=== PATIENT | female | born 1945 | race Caucasian/White ===

== ENCOUNTER 2019-06-30 16:37 | Inpatient (IN) ==
[2019-06-30] MEDS ORDERED: SODIUM CHLORIDE 0.9% 1000ML 1,000 ML IV ONE (16:45)
[2019-06-30] MEDS ORDERED: fentaNYL citrate 100 MCG/2 ML VIAL IV STA (16:54)
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
[2019-06-30] MEDS ORDERED: ONDANSETRON INJ 2 MG/ML 2 ML VIAL ONE ×2 (17:01→21:47)
[2019-06-30 17:15] LABS: Basophils # (auto) 0.01 K/uL (0-0.2); Basophils % (auto) 0.1 %; Eosinophils # (auto) 0.35 K/uL (0-0.5); Eosinophils % (auto) 2.7 %; Hematocrit (blood only) 40.6 % (37-47); Hemoglobin 13.5 g/dL (12.0-16.0); Immature Granulocytes # (auto) 0.13 K/uL (0.00-0.02); Lymphocytes # (auto) 1.94 K/uL (1.2-3.4); Mean Corpuscular Hemoglobin 31.3 pg (25-34); Mean Corpuscular Hgb Conc 33.3 g/dL (32-36); Mean Platelet Volume 9.9 fL (7.4-10.4); Monocytes # (auto) 0.63 K/uL (0.11-0.59); Monocytes % (auto) 4.9 %; Neutrophils # (auto) 9.87 K/uL (1.4-6.5); Neutrophils % (auto) 76.3 %; Platelet Count 262 K/uL (130-400); RDW Coefficient of Variation 12.5 % (11.5-14.5); RDW Standard Deviation 43.4 fL (36.4-46.3); Red Blood Count 4.32 M/uL (4.2-5.4); White Blood Count 12.93 K/uL (4.8-10.8)
[2019-06-30 17:15] LABS: iSTAT Creatinine 0.7 mg/dl (0.6-1.3); iSTAT Hemoglobin 12.9 g/dl (12.0-16.0); iSTAT Ionized Calcium 1.27 mmol/l (1.12-1.32); iSTAT Potassium 3.5 mEq/L (3.3-5.0)
[2019-06-30] MEDS ORDERED: IOVERSOL 100ml IV PRN (17:16)
[2019-06-30 17:25] LABS: Partial Thromboplastin Ratio 0.8; Partial Thromboplastin Time 22.1 Seconds (21.0-31.0); Prothrombin Time 10.2 Seconds (9.0-12.0)
[2019-06-30 17:31] LABS: BUN Creatinine Ratio 22.2 (10-20); Blood Urea Nitrogen 17 mg/dl (7-18); Calcium 9.3 mg/dl (8.5-10.1); Carbon Dioxide 27 mmol/L (21-32); Chloride 107 mmol/L (98-107); Est GFR (African American) 94.5; Est GFR (Non-African American) 81.5; Glucose 109 mg/dl (70-99); Lipase 389 U/L (73-393); Potassium 3.3 mmol/L (3.5-5.1); Sodium 138 mmol/L (136-145)
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
[2019-06-30 17:35] LABS: Troponin I < 0.015 ng/ml (0-0.045)
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
[2019-06-30] MEDS ORDERED: MoRPHine SULFATE 4 MG/ML 1 ML CARP\\VIAL IV STA (18:06)
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
[2019-06-30] MEDS: MoRPHine SULFATE 4 MG/ML 1 ML CARP\\VIAL IV PRN (20:48)
[2019-06-30] MEDS: OXYCODONE HCL IR 5 MG TAB (IMMEDIATE RELEASE) PO PRN (21:29)
[2019-06-30] MEDS: ACETAMINOPHEN 325 MG TAB PO SCH (21:29)
[2019-06-30] MEDS: SERTRALINE HCL 50 MG TABLET PO SCH (21:29)
[2019-06-30] MEDS ORDERED: ONDANSETRON INJ 2 MG/ML 2 ML VIAL IV PRN (21:45)
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
[2019-07-01] MEDS: ACETAMINOPHEN 325 MG TAB PO SCH ×5 (03:50→21:18)
[2019-07-01] MEDS: MoRPHine SULFATE 4 MG/ML 1 ML CARP\\VIAL IV PRN ×3 (03:50→11:29)
[2019-07-01] MEDS ORDERED: ROPIVACAINE 0.5% HCL/PF 150 MG, BUPIVACAINE 0.5% MPF 30 ML, EPINEPHrine 30MG/30ML (OR U... INSTIL SCH (06:00)
[2019-07-01 06:43] LABS: Hematocrit (blood only) 31.5 % (37-47); Hemoglobin 10.2 g/dL (12.0-16.0); Mean Corpuscular Hemoglobin 31.1 pg (25-34); Mean Corpuscular Hgb Conc 32.4 g/dL (32-36); Mean Platelet Volume 9.4 fL (7.4-10.4); Platelet Count 206 K/uL (130-400); RDW Coefficient of Variation 12.8 % (11.5-14.5); RDW Standard Deviation 44.8 fL (36.4-46.3); Red Blood Count 3.28 M/uL (4.2-5.4); White Blood Count 8.71 K/uL (4.8-10.8)
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
[2019-07-01 07:20] LABS: BUN Creatinine Ratio 20.8 (10-20); Calcium 8.5 mg/dl (8.5-10.1); Creatinine Clr Calc Pharmacy 67.1 ml/min; Est GFR (African American) 97.7; Est GFR (Non-African American) 84.3; Potassium 3.8 mmol/L (3.5-5.1)
--- NOTE | 2019-07-01 08:45 | XRay Report ---
XR ribs RT min 2V CLINICAL HISTORY: rib fracture. Right rib pain. COMPARISON STUDY: Right humerus 06/30/2019. FINDINGS: Redemonstration of the displaced and comminuted fracture within the right humeral head/neck . Mildly displaced right anterior sixth through 10th rib fractures. No pneumothorax. IMPRESSION: 1. Mildly displaced right anterior sixth through 10th rib fractures. No pneumothorax. 2. Displaced and comminuted fracture within the right humeral head/neck is again noted. ACT 112: Negative or not required by law. Electronically signed by: Cuong Cuevas M.D. 07/01/2019 8:44 AM
[2019-07-01] MEDS ORDERED: LORazepam 0.5 MG TAB PO PRN (09:35)
--- NOTE | 2019-07-01 09:42 | Electrocardiogram Report ---
Test Reason : Blood Pressure : / mmHG Vent. Rate : 084 BPM Atrial Rate : 084 BPM P-R Int : 118 ms QRS Dur : 096 ms QT Int : 392 ms P-R-T Axes : 041 058 061 degrees QTc Int : 463 ms Poor data quality, interpretation may be adversely affected Normal sinus rhythm Normal ECG No previous ECGs available Confirmed by Solomon Portillo ([id number]) on 07/01/2019 9:42:16 AM Referred By: REFERRED SELF Confirmed By:Solomon Portillo
[2019-07-01] MEDS ORDERED: SODIUM CHLORIDE 0.9% 1000ML 1,000 ML IV SCH (09:45)
[2019-07-01] MEDS: KETOROLAC TROMETHAMINE 15 MG/ML VIAL IV PRN (09:52)
[2019-07-01] MEDS ORDERED: BUPIVACAINE 0.5 % 5 MG/1 ML PF 10ML VIAL ONE (13:03)
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
[2019-07-01] MEDS ORDERED: HYDROmorphone INJ 1 MG/ML SYRINGE IV PRN (13:29)
[2019-07-01] MEDS ORDERED: KETOROLAC 30 MG/ML VIAL IV PRN (13:29)
[2019-07-01] MEDS ORDERED: ATROPINE SULFATE 0.1 MG/ML 10ML SYR IV PRN (13:29)
[2019-07-01] MEDS ORDERED: ONDANSETRON INJ 2 MG/ML 2 ML VIAL IV PRN ×2 (13:29→17:43)
[2019-07-01] MEDS ORDERED: PROPOFOL IV EMULSION 10 MG/ML 20 ML VIAL IV ONE (13:30)
[2019-07-01] MEDS ORDERED: fentaNYL citrate 100 MCG/2 ML VIAL ONE (13:30)
[2019-07-01] MEDS ORDERED: DEXAMETHASONE SOD INJ 4 MG/ML VIAL ONE (13:30)
[2019-07-01] MEDS ORDERED: LIDOCAINE HCL 2% 2 ML VIAL/AMP(20MG/ML) INFIL ONE (13:30)
[2019-07-01] MEDS ORDERED: NEOSTIGMINE METHYLSULFATE 5 MG/5 ML SYR ONE ×2 (13:30→14:42)
[2019-07-01] MEDS ORDERED: GLYCOPYRROLATE 0.2 MG/ML VIAL ONE ×2 (13:30→14:42)
[2019-07-01] MEDS ORDERED: ONDANSETRON INJ 2 MG/ML 2 ML VIAL ONE (13:30)
[2019-07-01] MEDS ORDERED: MIDAZOLAM HCL 1 MG/ML 2ML VIAL ONE (13:30)
[2019-07-01] MEDS ORDERED: CEFAZOLIN 2,000 MG/15 ML IV PUSH IV ONE (13:53)
[2019-07-01] MEDS ORDERED: CEFAZOLIN 2000MG 2,000 MG/15 ML SYR IV ONE (13:53)
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
[2019-07-01] MEDS ORDERED: ROCURONIUM BROMIDE 10 MG/ML 5 ML VIAL ONE (14:42)
[2019-07-01] MEDS ORDERED: ePHEDrine sulfate 50 MG/ML SYR ONE (15:54)
[2019-07-01] MEDS ORDERED: PHENYLEPHRINE 100MCG/ML 5ML SYR ONE (15:54)
[2019-07-01] MEDS ORDERED: POVIDONE-IODINE OP SOLN 30 ML BTL TOP SCH (16:00)
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
--- NOTE | 2019-07-01 16:48 | Anesthesiology Progress Note ---
Date of Service July 01, 2019 Anesthesia Post Procedure Vital Signs Vital Signs: Temp Pulse Pulse Pulse Resp BP Pulse Ox 07/01/19 16:30 97 H 24 127/64 99 07/01/19 16:20 84 19 129/64 98 07/01/19 16:13 36.9 C 98 H 13 140/67 99 07/01/19 13:11 36.8 C 75 20 121/74 93 07/01/19 11:49 36.5 C 65 18 111/66 96 07/01/19 08:06 36.5 C 60 18 96/54 L 98 07/01/19 08:00 86 07/01/19 04:00 36.7 C 69 18 99/57 L 97 07/01/19 00:00 86 06/30/19 23:52 36.7 C 68 17 96/60 L 97 06/30/19 20:35 36.5 C 67 18 118/68 99 06/30/19 20:25 36.5 C 66 20 118/68 98 06/30/19 19:38 66 13 102/61 99 06/30/19 19:00 68 18 105/64 100 06/30/19 17:32 89 18 126/74 92 Pain Intensity Right Shoulder: Pain Intensity: 0 Transfer of Care Handoff Completed per policy Notes Mental Status: alert / awake / arousable and participated in evaluation Patient Amnestic to Procedure: Yes Nausea / Vomiting: adequately controlled Pain: adequately controlled Airway Patency, RR, SpO2: stable & adequate BP & HR: stable & adequate Hydration State: stable & adequate Anesthetic Complications: no major complications apparent and Pt Satisfied with anesthetic care
--- NOTE | 2019-07-01 16:49 | XRay Report ---
XR shoulder RT min 2V routine CLINICAL HISTORY: Post shoulder surgery COMPARISON: 06/30/2019 DISCUSSION: Interval placement of a total right shoulder arthroplasty. A residual fracture component of the humeral neck persists. Expected soft tissue postoperative change IMPRESSION: Anatomic alignment posttotal right shoulder arthroplasty. ACT 112: Negative or not required by law. The above report was generated using voice recognition software. It may contain grammatical, syntax or spelling errors. Electronically signed by: Mark Clifford M.D. 07/01/2019 4:48 PM
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
[2019-07-01] MEDS ORDERED: NALOXONE HCL 0.4 MG/1 ML VIAL/CARP IV PRN (17:43)
[2019-07-01] MEDS ORDERED: POLYETHYLENE (MIRALAX) 17 GM PACK PO PRN (17:49)
[2019-07-01] MEDS: DOCUSATE SODIUM 100 MG CAP PO SCH (21:17)
[2019-07-01] MEDS: SERTRALINE HCL 50 MG TABLET PO SCH (21:19)
[2019-07-01] MEDS: CEFAZOLIN 2000MG 2,000 MG/15 ML SYR IV SCH (21:19)
[2019-07-02] MEDS: ACETAMINOPHEN 325 MG TAB PO SCH ×4 (02:55→20:19)
[2019-07-02] MEDS: CEFAZOLIN 2000MG 2,000 MG/15 ML SYR IV SCH (05:25)
[2019-07-02 05:35] LABS: Hematocrit (blood only) 26.9 % (37-47); Hemoglobin 8.9 g/dL (12.0-16.0); Immature Granulocytes # (auto) 0.02 K/uL (0.00-0.02); Immature Granulocytes % (auto) 0.2 %; Lymphocytes % (auto) 6.2 %; Mean Corpuscular Hemoglobin 31.1 pg (25-34); Mean Corpuscular Hgb Conc 33.1 g/dL (32-36); Mean Corpuscular Volume 94.1 fL (80-100); Mean Platelet Volume 9.7 fL (7.4-10.4); Monocytes # (auto) 0.67 K/uL (0.11-0.59); Monocytes % (auto) 6.9 %; Neutrophils # (auto) 8.46 K/uL (1.4-6.5); Neutrophils % (auto) 86.7 %; Platelet Count 184 K/uL (130-400); RDW Coefficient of Variation 12.8 % (11.5-14.5); RDW Standard Deviation 44.1 fL (36.4-46.3); Red Blood Count 2.86 M/uL (4.2-5.4); White Blood Count 9.75 K/uL (4.8-10.8)
[2019-07-02 06:39] LABS: BUN Creatinine Ratio 17.9 (10-20); Calcium 8.3 mg/dl (8.5-10.1); Creatinine Clr Calc Pharmacy 74.3 ml/min; Est GFR (African American) 103.5; Est GFR (Non-African American) 89.3; Potassium 4.2 mmol/L (3.5-5.1)
--- NOTE | 2019-07-02 07:01 | Orthopedic Progress Note ---
Date of Service July 02, 2019 Assessment & Plan (1) History of reverse total replacement of right shoulder joint: Overall she is doing very well. She is not having too much pain in the right shoulder. She will be seen by physical therapy this morning for hand, wrist, elbow, and pendulum exercises. She can be weightbearing as tolerated. I do not think any treatment for the medial malleolus fracture is warranted right now. She is not having much pain. She can do the range of motion exercises she is learned from physical therapy on her own for the next 2 weeks. I will see her in the office in 2 weeks to remove the mary and start her with formal physical therapy. She is orthopedically stable for discharge when medically ready. Present on Admission?: No Subjective Ellie was seen and examined at bedside this morning. Overall she is doing very well. She is not having too much pain in the right shoulder. She is already been up and ambulating in the hallways. She is not having much pain in her ankle. She is happy with her progress. She has no complaints. Physical Exam Musculoskeletal: Physical examination of the right shoulder, the dressing is clean and dry. She is wearing her sling as instructed. She can flex her fingers but she cannot extend them yet. She still some numbness in her hand. The block is still working. Results & Data Vital Signs (Past 12 Hours) Vital Signs Temp Pulse Resp BP Pulse Ox 07/02/19 03:05 36.6 C 71 18 100/60 94 07/01/19 23:40 36.7 C 73 16 92/54 L 93 07/01/19 21:40 101/61 98 07/01/19 20:25 36.6 C 76 17 94/53 L 96 07/01/19 19:05 36.6 C 69 17 105/64 97 Laboratory Results H & H 06/30/19 07/01/19 07/02/19 Range/Units 16:54 06:23 04:51 Hgb 13.5 10.2 L D 8.9 L (12.0-16.0) g/dL Hct 40.6 31.5 L 26.9 L (37-47) % Coagulation 06/30/19 Range/Units 16:54 INR 1.0 (0.9-1.1) Diagnostic Findings Postoperative x-rays of the right shoulder show the prosthesis to be in anatomic alignment without any evidence of fracture, dislocation, or loosening. The tuberosities appear to be well reduced. PG Care Time/CCT Total # of Minutes Spent Total Time Spent with Patient: Total time spent is greater than 50% in coordination of care (as documented) at patient's floor/unit and/or counseling patient:
--- NOTE | 2019-07-02 07:15 | XRay Report ---
XR chest 1V portable CLINICAL HISTORY: rib fractures COMPARISON STUDY: 07/01/2019 FINDINGS: The cardiac and mediastinal contours remain stable. No pneumothorax is visualized. There is no failure. There is no focal pulmonary consolidation. The patient is status post a reversed total r ight shoulder arthroplasty. There is gas present within the soft tissues consistent with recent surge ry.[The recently described right-sided rib fractures are difficult to visualize on this portable ches t x-ray. IMPRESSION: 1. No active disease in the chest 2. No evidence of pneumothorax 3. Postsurgical changes involving the right shoulder ACT 112: Negative or not required by law. Electronically signed by: Wolf Gonzalez M.D. 07/02/2019 7:14 AM
--- NOTE | 2019-07-02 07:15 | Surgery Progress Note ---
Date of Service July 02, 2019 Assessment & Plan (1) Ground glass opacity present on imaging of lung: I discussed the CT findings of the right upper lobe abnormality with the patient and her family. This may well been due to trauma. It does not look like a contusion however it does not not look like a solid mass either. We can repeat her CT scan in 2 months and I will see her back in the office. She looks much improved today. Present on Admission?: Yes Subjective Patient is much improved from yesterday. She tolerated her reverse right shoulder arthroplasty quite nicely. Physical Exam Physical Exam: She is moving air well. She is quite black and blue anteriorly on her sternum and chest. Results & Data Vital Signs (Past 12 Hours) Vital Signs Temp Pulse Resp BP Pulse Ox 07/02/19 03:05 36.6 C 71 18 100/60 94 07/01/19 23:40 36.7 C 73 16 92/54 L 93 07/01/19 21:40 101/61 98 07/01/19 20:25 36.6 C 76 17 94/53 L 96 PG Care Time/CCT Total # of Minutes Spent Total Time Spent with Patient: Total time spent is greater than 50% in coordination of care (as documented) at patient's floor/unit and/or counseling patient:
[2019-07-02] MEDS: DOCUSATE SODIUM 100 MG CAP PO SCH ×2 (09:20→20:19)
[2019-07-02] MEDS: KETOROLAC TROMETHAMINE 15 MG/ML VIAL IV PRN ×2 (12:06→20:19)
[2019-07-02] MEDS ORDERED: TAMSULOSIN HCL 0.4 MG CAP PO ONE (15:00)
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
[2019-07-02] MEDS: OXYCODONE HCL IR 5 MG TAB (IMMEDIATE RELEASE) PO PRN (16:44)
[2019-07-02] MEDS: SERTRALINE HCL 50 MG TABLET PO SCH (20:20)
[2019-07-02] MEDS ORDERED: OXYCODONE HCL IR 5 MG TAB (IMMEDIATE RELEASE) PO PRN (21:51)
[2019-07-02] MEDS ORDERED: KETOROLAC TROMETHAMINE 15 MG/ML VIAL IV ONE (23:19)
[2019-07-03] MEDS: ACETAMINOPHEN 325 MG TAB PO SCH ×3 (01:53→14:13)
[2019-07-03] MEDS: MoRPHine SULFATE 4 MG/ML 1 ML CARP\\VIAL IV PRN (07:20)
[2019-07-03 07:25] LABS: Basophils # (auto) 0.01 K/uL (0-0.2); Basophils % (auto) 0.1 %; Eosinophils # (auto) 0.22 K/uL (0-0.5); Eosinophils % (auto) 3.2 %; Hematocrit (blood only) 24.5 % (37-47); Immature Granulocytes # (auto) 0.03 K/uL (0.00-0.02); Immature Granulocytes % (auto) 0.4 %; Lymphocytes # (auto) 1.24 K/uL (1.2-3.4); Lymphocytes % (auto) 17.9 %; Mean Corpuscular Hemoglobin 31.1 pg (25-34); Mean Corpuscular Hgb Conc 32.7 g/dL (32-36); Mean Corpuscular Volume 95.3 fL (80-100); Mean Platelet Volume 9.4 fL (7.4-10.4); Monocytes # (auto) 0.66 K/uL (0.11-0.59); Monocytes % (auto) 9.5 %; Neutrophils # (auto) 4.78 K/uL (1.4-6.5); Neutrophils % (auto) 68.9 %; Platelet Count 161 K/uL (130-400); RDW Coefficient of Variation 13.1 % (11.5-14.5); RDW Standard Deviation 45.2 fL (36.4-46.3); Red Blood Count 2.57 M/uL (4.2-5.4); White Blood Count 6.94 K/uL (4.8-10.8)
[2019-07-03] MEDS: DOCUSATE SODIUM 100 MG CAP PO SCH (07:54)
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
[2019-07-03] MEDS ORDERED: TAMSULOSIN HCL 0.4 MG CAP PO SCH (12:00)
[2019-07-03] MEDS ORDERED: LORazepam 0.5 MG TAB PO ONE (12:30)
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
== END 2019-07-03 15:10 | disposition home or self-care (01) | DRG 483 ==
LOC: ED 16:37 → 2S 19:20 → SUATTDRO 19:20 → 2S 20:08 → 3E 07-01 16:10